=== PATIENT | male | born 1990 | race Caucasian/White ===

== ENCOUNTER 2020-04-06 11:33 | Emergency (ER) | payer BC ==
[2020-04-06 12:05] VITALS: BP 149/77
--- NOTE | 2020-04-06 12:31 | ED Physician Documentation ---
PD HPI PED ILLNESS - Stated complaint Stated Complaint: R EAR PAIN - Chief complaint Chief Complaint: Heent - History obtained from History obtained from: Patient - Additional information Additional information: 29-year-old gentleman has had a history of PE tubes 3 times most recently about a year ago. Also septoplasty. Now has 2-1/2 days of increasing left ear pain. Review of Systems Constitutional: denies: Fever, Chills Nose: denies: Rhinorrhea / runny nose, Congestion Throat: denies: Sore throat Cardiac: denies: Chest pain / pressure, Palpitations Respiratory: denies: Dyspnea, Cough PD PAST MEDICAL HISTORY - Past Medical History Past Medical History: Yes Cardiovascular: None Respiratory: None Neuro: None Endocrine/Autoimmune: None GI: None : None HEENT: Other Psych: Depression, Anxiety Musculoskeletal: None Derm: None - Past Surgical History Past Surgical History: No HEENT: Myringotomy (tubes), Rhinoplasty - Present Medications Home Medications: Ambulatory Orders Medication Instructions Recorded Confirmed HYDROcod/ACETAM 5/325 [[place] 5/325] 1 - 2 tab PO Q6H PRN #10 tablet 04/06/20 Ofloxacin [Ocuflox] 5 drops EACHEAR BID 7 Days #1 drops 04/06/20 Sulfamethox/Trimeth 800/160 1 each PO BID #14 tablet 04/06/20 [Bactrim Ds 800/160] - Allergies Allergies/Adverse Reactions: Allergies Allergy/AdvReac Type Severity Reaction Status Date / Time Penicillins Allergy Unknown Verified 04/06/20 12:01 - Social History Does the pt smoke?: No Smoking Status: Never smoker Does the pt drink ETOH?: No Does the pt have substance abuse?: Yes Substance Use and Type: Marijuana - Immunizations Immunizations are current?: Yes PD ED PE NORMAL - Vitals Vital signs reviewed: Yes - General General: Alert and oriented X 3, No acute distress - HEENT HEENT: Other (On initial evaluation both TMs are occluded by cerumen. Will reexamine after irrigation.) - Neck Neck: Supple, no meningeal sign, No bony TTP - Neuro Neuro: Alert and oriented X 3, Normal speech Results - Vitals Vitals: Vital Signs - 24 hr 04/06/20 12:01 Temperature 36.9 C Heart Rate 76 Respiratory 18 Rate Blood Pressure 149/77 H O2 Saturation 97 Oxygen O2 Source Room air PD MEDICAL DECISION MAKING - ED course ED course: Cerumen was irrigated from both ears. He did not tolerate the left side very well getting a lot of vertigo despite careful attention to the temperature of the water. After the cerumen was removed from the right ear he clearly had an otitis media. His PE tubes seem to be in place but unclear if it is functional since there is no otorrhea. Departure - Departure Disposition: 01 Home, Self Care Clinical Impression: Impacted cerumen of both ears ROM (right otitis media) Qualifiers: Otitis media type: suppurative Chronicity: acute Recurrence: recurrent Spontaneous tympanic membrane rupture: without spontaneous rupture Qualified Code(s): H66.004 - Acute suppurative otitis media without spontaneous rupture of ear drum, recurrent, right ear Condition: Good Record reviewed to determine appropriate education?: Yes Instructions: ED Otitis Media Acute Adult Follow-Up: ROSARIO GIBBONS MD [Physician No Access] - Prescriptions: Sulfamethox/Trimeth 800/160 [Bactrim Ds 800/160] 1 each PO BID #14 tablet HYDROcod/ACETAM 5/325 [[place] 5/325] 1 - 2 tab PO Q6H PRN #10 tablet PRN Reason: Pain Ofloxacin [Ocuflox] 5 drops EACHEAR BID 7 Days #1 drops Comments: Probably reasonable to schedule follow-up in a week or 2 with your ENT physician. Return for new or worsening symptoms. Ibuprofen as needed for pain per package instructions. Hydrocodone when the pain is severe.
== END 2020-04-06 12:57 | disposition home or self-care (01) ==
LOC: ED 11:33
DX: H66.004 Acute suppurative otitis media without spontaneous rupture of ear drum, recurrent, right ear (principal); H61.23 Impacted cerumen, bilateral
CPT/HCPCS: 99283